=== PATIENT | female | born 1970 | race Caucasian/White ===

== ENCOUNTER → 2016-09-23 | Outpatient (CLI) | payer OTHER ==
[~2016-09-23] MED LIST: ALBU8.5H INH; ESTR1PAT72 TD; IBUP-1547 PO; OMEP20CA10 PO; OXYC1TAB11 PO
--- NOTE | 2016-09-23 11:36 | DI ---
Indication: ITS.REASON: M54.2 CERVICALGIA PROCEDURE: CERVICAL SPINE 4 OR 5 VIEWS: Encounter: Initial Comparison: None Findings: Alignment of the cervical spine is within normal limits. The C7 and T1 vertebra are not visible on the lateral views. Cervicothoracic junction cannot be evaluated. No acute fracture or subluxation. The oblique views show no evidence of bony neural foraminal stenosis. Mild disk space narrowing at C5-C6. Impression: Mild degenerative disk disease at C5-C6. .
== END ==
LOC: IMA 10:08
PROVIDERS: ATTEND Family Medicine
DX: M50.322 Other cervical disc degeneration at C5-C6 level (principal)